=== PATIENT | female | born 1970 | race Caucasian/White ===

== ENCOUNTER 2017-01-02 08:43 | Emergency (ER) | payer MEDICARE, OTHER ==
[~2017-01-02] VITALS: Ht 157.5 cm; Wt 63.5 kg
--- NOTE | ~2017-01-02 | CT4 ---
[facility] A Service of [facility] RADIOLOGY TEXT RESULTS PATIENT: DENITA CHEN LOCATION: [facility] : 70 UNIT #: [id number] AGE: [address]: Misael Alvarado SEX: F ORDER DR: [id number] [facility] [address] [place], [place] [address] [id number] MR#: [id number] Acc #: [id number] NAME: DENITA CHEN : 1970 SEX: F STUDY DATE/TIME: 01/02/2017 11:15 UNIT: [facility] ROOM: STUDY DESCRIPTION: CT Abd and Pelv Wo Cont Attending Physician: Misael Alvarado Ordering Physician: Misael Alvarado Primary Care Physician: Primary Care Physician No MEDICAL IMAGING REPORT This report is preliminary unless electronic signature is present EXAM CT abdomen and pelvis without contrast 01/02/2017 1115 hours HISTORY Right flank pain with right lower quadrant pain for 4 days. Pain with urination. COMPARISON CT abdomen and pelvis 04/23/2014. TECHNIQUE Helical noncontrasted images were obtained from the lung bases through the pubic symphysis. No oral or intravenous contrast was administered. Sagittal and coronal reconstructions were performed. Total exam DLP 582 mGy-cm. This CT examination was performed with one or more of the following radiation dose reduction techniques: automatic exposure control, adjustment of mA and/or kV according to patient size, and iterative reconstruction. FINDINGS Images through the lung bases are clear. There are no effusions. The distal esophagus is normal. Noncontrasted images through the abdomen demonstrate a normal appearance to the liver, spleen, pancreas, gallbladder and bile ducts. The adrenal glands are normal. The kidneys demonstrate no mass, stone or obstruction. There is no ureterectasis or ureteral calculus. The bladder appears normal. The stomach, duodenum are now normal. Previous inflammation around the duodenum on prior CT is no longer seen. There is no small bowel distension or small bowel wall thickening. The appendix is normal. [facility] A Service of [facility] RADIOLOGY TEXT RESULTS PATIENT: DENITA CHEN LOCATION: [facility] : 70 UNIT #: [id number] AGE: [address]: Misael Alvarado SEX: F ORDER DR: The colon is unremarkable. There is no wall thickening. CT pelvis demonstrate post hysterectomy change. There is no fluid collection or abscess. I believe both ovaries remain present and are normal in appearance. Degenerative disc disease L2-3 unchanged. IMPRESSION 1. No acute findings in the abdomen or pelvis. There are no renal or ureteral calculi. 2. The stomach, small bowel, appendix and colon appear normal. 3. Previous inflammation around the duodenum is no longer seen. 4. Normal gallbladder. 5. Degenerative disc disease L2-3 unchanged. Dictated by... Estelle Hobson M.D. THIS IS AN ELECTRONICALLY VERIFIED REPORT Estelle Hobson M.D. at 01/02/2017 2:31 PM KAMRON/michelle TD: 01/02/2017 13:28 JOB #: [id number] MEDICAL IMAGING REPORT Page 1 of 1 COPY
[~2017-01-02 08:43] MED LIST: ACETAMINOPHEN; ALBUTEROL17 GM INH; AMBIEN PO; AMOXICILLIN; AMOXICILLIN PO; ATARAX PO; BACLOFEN10 MG PO; BACTRIM DS TABL1 TAB; CELEXA PO; CYMBALTA PO; DELSYM30 MG/5 ML PO; DEPAKOTE PO; DESYREL100 MG PO; DIAZEPAM PO; DICLOFENAC; DOXYCYCLINE PO; FIORINAL CAPSUL1 CAP; FIORINAL CAPSUL1 CAP PO; FLEXERIL PO; FLEXERIL10 MG PO; IBUPROFEN; IBUPROFEN PO; IBUPROFEN100 MG PO; INDOMETHACIN75 MG PO; KENALOG IN ORABA5 GM TOP; KETOPROFEN; KETOPROFEN PO; KROGER PHARMACY; LITHIUM PO; LORTAB 10-3251 EACH PO; LORTAB 10-5001 EACH PO; LORTAB 7.5-5001 TAB PO; MEDROL PO; MEDROL4 MG/DOSE- PO; MOBIC PO; NAPROSYN500 MG PO; ORUDIS75 M1 PO; PARAFON FORTE500 MG PO; PERCOCET5/325 PO; PREDNISONE PO; PREDNISONE50 MG PO; PROVENTIL17 GM IH; PROZAC PO; RID150 ML MC; ROBAXIN PO; SPECTAZOLE15 GM TP; TEGRETOL PO; TRAMADOL HCL50 M1 PO; TRAZODONE PO; TYLOX 5/500 CAP1 CAP PO; ULTRAM PO; VICODIN 5/500 T1 TAB PO; ZITHROMAX PO; ZOFRAN PO; [UNRECOGNIZED DRUG - REMARK]
[2017-01-02 09:30] LABS: BASOPHIL% 0.7 % (0-2.5); EOSINOPHIL# 0.2 X10e3 (0-0.7); EOSINOPHIL% 3.5 % (0.0-7.0); HEMATOCRIT 36.5 % (35.0-45.0); HEMOGLOBIN 12.5 gm/dL (12.0-16.0); LYMPHOCYTE# 0.8 X10e3 (1.0-3.5); LYMPHOCYTE% 14.6 % (17.0-45.0); MEAN CELL VOLUME 86.1 FL (83-96); MEAN CORPUSCULAR HEMOGLOBIN 29.4 PG (28-34); MEAN CORPUSCULAR HGB CONC 34.2 g/dL (30-36); MEAN PLATELET VOLUME 7.8 FL (6.5-11.5); MONOCYTE# 0.4 X10e3 (0-1.0); MONOCYTE% 7.6 % (3.0-12.0); NEUTROPHIL# 3.9 X10e3 (1.5-7.1); NEUTROPHIL% 73.6 % (40-75); PLATELET COUNT 194 X10e3 (140-420); RED BLOOD COUNT 4.25 X10e (3.90-5.30); RED CELL DISTRIBUTION WIDTH 12.7 % (11.0-15.5); WHITE BLOOD COUNT 5.3 X10e3 (4.0-10.5)
[2017-01-02 09:31] LABS: DIFF IND NO
[2017-01-02 09:35] LABS: URINE SOURCE CLEAN CATCH
[2017-01-02 09:56] LABS: URINE APPEARANCE TURBID; URINE BILIRUBIN NEG (NEG); URINE BLOOD NEG (NEG); URINE COLOR DK YELLOW; URINE GLUCOSE NEG (NEG); URINE KETONE TRACE (NEG); URINE LEUKOCYTE ESTERASE 2+ (NEG); URINE NITRATE NEG (NEG); URINE PH 5.5 (5-8); URINE PROTEIN 2+ (NEG); URINE SPECIFIC GRAVITY 1.031 (1.003-1.035)
[2017-01-02 10:00] LABS: CULTURE INDICATED? YES; URINE BACTERIA AUWI 4+ (NEGATIVE); URINE SQUAMOUS EPITHELIAL CELL MANY /[HPF]; UWBCS1 AUWI 100-200 (0-5)
[2017-01-02 10:05] LABS: ALBUMIN SERUM 3.7 g/dL (3.5-5.0); BILIRUBIN, DIRECT 0.1 mg/dL (0.0-0.2); BILIRUBIN,INDIRECT 0.3 mg/dL (0.0-0.9); BILIRUBIN,TOTAL 0.4 mg/dL (0.2-2.0); CALCIUM SERUM 8.7 mg/dL (8.4-10.2); CREATININE SERUM 0.7 mg/dL (0.6-1.4); GLOM FILT RATE Estimated 103.9 mL/min (>60); POTASSIUM 3.5 mmol/L (3.5-5.1); PROTEIN TOTAL SERUM 6.2 g/dL (6.0-8.3)
[2017-01-02 10:13] LABS: U HYALINE CASTS AUWI 0-2 /[LPF]
[2017-01-04 08:03] LABS: CHLAMYDIA TRACH Not Detected (Not Detected); N GONOR Not Detected (Not Detected)
== END 2017-01-02 12:30 | disposition home or self-care (01) ==
LOC: CED 08:43
PROVIDERS: Nurse Practitioner
DX: N39.0 Urinary tract infection, site not specified (principal); N93.9 Abnormal uterine and vaginal bleeding, unspecified; F31.9 Bipolar disorder, unspecified; I73.9 Peripheral vascular disease, unspecified; Z90.710 Acquired absence of both cervix and uterus; Z98.51 Tubal ligation status; Z79.899 Other long term (current) drug therapy; Z88.1 Allergy status to other antibiotic agents
CPT/HCPCS: 36415; 74176; 80048; 80076; 81003; 82150; 83690; 84703; 85025; 87086; 87088; 87186; 87220; 87491; 87591; 87808; 87905; 99284; J2270; J2405

== ENCOUNTER 2017-01-28 12:16 | Emergency (ER) | payer MEDICARE, OTHER ==
[~2017-01-28] VITALS: Ht 160 cm; Wt 68.0 kg
== END 2017-01-28 13:00 | disposition left against medical advice (07) ==
LOC: CED 12:16
DX: Z53.21 Procedure and treatment not carried out due to patient leaving prior to being seen by health care provider (principal)